=== PATIENT | female | born 1960 | race American Indian/Alaskan Native ===

== ENCOUNTER 2017-02-08 09:53 | Emergency (ER) | payer BC ==
[2017-02-08] MEDS ORDERED: BENADRYL PO ONE (12:47)
[2017-02-08] MEDS ORDERED: DECADRON IM ONE (12:47)
[2017-02-08] MEDS ORDERED: PEPCID PO ONE (12:48)
--- NOTE | 2017-02-08 13:54 | Emergency Department Report ---
Entered by LENNY LUEVANO, acting as scribe for YAMILETH ZALDIVAR PA. ED Eye Problem HPI - General Chief complaint: Allergic Reaction Stated complaint: EYES PUFFY Source: patient Mode of arrival: Ambulatory Limitations: No Limitations - History of Present Illness Initial comments: 56 year old female presents to the ED for evaluation of swelling to bilateral eyes for 2 days. She reports Hx of seasonal allergies but notes she took Benadryl at home with no relief. She reports intermittent burning sensation but denies itching, pain, redness, and injury. She also c/o area of rash to anterior right lower leg that is itchy. Denies personal Hx of eczema or psoriasis but notes her children have Hx of eczema. Denies rhinorrhea,fever, abdominal pain, nausea, vomiting, diarrhea, chest pain, shortness of breath, and environmental or dietary changes. Denies difficulty in breathing or difficulty swallowing. MD chief complaint: other (bilateral eye swelling) Onset/Timin -: days(s) Location: both eyes If Injury: none Eye Symptoms: burning (intermittent) Context: other (history of seasonal allergies) Associated Symptoms: denies: headache, nausea/vomiting, rhinorrhea, fever, shortness of breath, other (eye pain, abdominal pain, nausea, vomiting, chest pain) Treatments Prior to Arrival: other (Benadryl) - Related Data Previous Rx's Medication Instructions Recorded Last Taken Type Diphenhydramine HCl [Benadryl 25 mg PO Q6H #20 tablet 02/08/17 Unknown Rx Allergy TAB] Prednisone [predniSONE 5 mg (6-Day 5 mg PO .TAPER #1 tab.ds.pk 02/08/17 Unknown Rx Pack, 21 Tabs)] Triamcinolone 0.1% [Kenalog 0.1% 1 applic TP TID #1 tube 02/08/17 Unknown Rx CREAM] Allergies Allergy/AdvReac Type Severity Reaction Status Date / Time No Known Allergies Allergy Unverified 02/08/17 09:59 ED Review of Systems Comment: All other systems reviewed and negative Constitutional: denies: chills, fever, malaise Eyes: other (bilateral eye swelling). denies: eye pain (itching, redness), eye discharge, vision change ENT: denies: other (runny nose) Respiratory: denies: shortness of breath Cardiovascular: denies: chest pain Gastrointestinal: denies: abdominal pain, nausea, vomiting Skin: other (area of discoloration and itching to anterior right lower leg) ED Past Medical Hx - Past Medical History Previous Medical History?: Yes Additional medical history: Vaginal delivery x 2 - Surgical History Past Surgical History?: No - Social History Smoking Status: Never Smoker Substance Use Type: Alcohol, Other - Medications Home Medications: Home Medications Medication Instructions Recorded Confirmed Last Taken Type Diphenhydramine HCl [Benadryl 25 mg PO Q6H #20 tablet 02/08/17 Unknown Rx Allergy TAB] Prednisone [predniSONE 5 mg (6-Day 5 mg PO .TAPER #1 tab.ds.pk 02/08/17 Unknown Rx Pack, 21 Tabs)] Triamcinolone 0.1% [Kenalog 0.1% 1 applic TP TID #1 tube 02/08/17 Unknown Rx CREAM] ED Physical Exam - General Limitations: No Limitations General appearance: alert, in no apparent distress, other (The patient is well- developed and well-nourished) - Head Head exam: Present: atraumatic, normocephalic - Eye Eye exam: Present: PERRL, EOMI, periorbital swelling (erythema and edema inferior to right eye, non-tender, no drainage or bleeding). Absent: conjunctival injection, periorbital tenderness Pupils: Present: normal accommodation - ENT ENT exam: Present: normal orophraynx (No erythema, swelling or exudates), normal external ear exam (auditory canals and tympanic membranes clear; hearing grossly intact.), other (Normal nasal mucosa with no nasal discharge.) - Neck Neck exam: Present: normal inspection, full ROM (supple). Absent: meningismus, lymphadenopathy, thyromegaly - Respiratory Respiratory exam: Present: normal lung sounds bilaterally. Absent: respiratory distress, wheezes, rales, rhonchi, chest wall tenderness - Cardiovascular Cardiovascular Exam: Present: regular rate, normal rhythm, normal heart sounds. Absent: systolic murmur, diastolic murmur, rubs, gallop - GI/Abdominal GI/Abdominal exam: Present: soft, normal bowel sounds. Absent: distended, tenderness, guarding, rebound, rigid - Extremities Exam Extremities exam: Present: other (hyperpigmented, scaly patch on anterior aspect of right lower leg. No drainage or bleeding. No tenderness to palpation.) - Neurological Exam Neurological exam: Present: alert, oriented X3 - Psychiatric Psychiatric exam: Present: normal affect, normal mood - Skin Skin exam: Present: warm, dry, intact, rash (hyperpigmented, scaling, blanching patch noted over anterior right lower leg) ED Course Vital Signs 02/08/17 10:00 Temperature 97.9 F Pulse Rate 58 L Respiratory 16 Rate Blood Pressure 172/64 O2 Sat by Pulse 100 Oximetry ED Medical Decision Making - Lab Data Vital Signs 02/08/17 10:00 Temperature 97.9 F Pulse Rate 58 L Respiratory 16 Rate Blood Pressure 172/64 O2 Sat by Pulse 100 Oximetry - Medical Decision Making 56 year old female patient presents complaining of swelling to bilateral eyes for 2 days and pruritus to anterior aspect of right lower leg. Patient reported some symptomatic relief will list Benadryl, Pepcid, Decadron. Patient is in no acute distress at this time. She will be discharged home and is encouraged to follow up with a primary care provider. She will be sent home on Benadryl, steroid pack and triamcinolone cream and is encouraged to return to the emergency room for ED Disposition Clinical Impression: Periorbital edema, Rash Disposition: DISCHARGED TO HOME OR SELFCARE Is pt being admited?: No Does the pt Need Aspirin: No Condition: Stable Instructions: Allergies (ED), Eczema (ED) Additional Instructions: Follow-up with primary care provider and dermatology. Return to the emergency department if symptoms worsen. Prescriptions: Diphenhydramine HCl [Benadryl Allergy TAB] 25 mg PO Q6H #20 tablet Prednisone [predniSONE 5 mg (6-Day Pack, 21 Tabs)] 5 mg PO .TAPER #1 tab.ds.pk Triamcinolone 0.1% [Kenalog 0.1% CREAM] 1 applic TP TID #1 tube Referrals: PRIMARY CARE, [Primary Care Provider] - 3-5 Days LIZETT MENDOZA MD [Staff Physician] - 3-5 Days EDWARDO CHOI MD [Staff Physician] - 3-5 Days MALIA RED MD [Staff Physician] - 3-5 Days Forms: Work/School Release Form(ED) Time of Disposition: 13:49 This documentation as recorded by the CHLOÉ jones REBEKAH,accurately reflects the service I personally performed and the decisions made by me,KAYLEY,YAMILETH, PA.
[2017-02-08 14:05] VITALS: BP 158/69
== END 2017-02-08 13:52 | disposition home or self-care (01) ==
LOC: ED 09:53
DX: H05.223 Edema of bilateral orbit (principal); R21 Rash and other nonspecific skin eruption
CPT/HCPCS: 96372; 99282; J1100